=== PATIENT | male | born 1950 | race African-American/Black ===

== ENCOUNTER 2019-01-04 00:56 | Inpatient (IN) | payer MEDICARE ==
[2019-01-04] MEDS ORDERED: IPRATROPIUM/ALBUTEROL 0.5-2.5 MG/3 ML AMPUL NEB ONE (01:08)
[2019-01-04] MEDS ORDERED: ALBUTEROL SULFATE 0.083% NEB 2.5 MG/3 ML AMPUL NEB ONE ×2 (01:08→02:29)
--- NOTE | 2019-01-04 01:11 | ER Document Report ---
ED General - General Stated Complaint: DIFFICULTY BREATHING Time Seen by Provider: 01/04/19 00:59 Cannot obtain history due to: Unstable vital signs Notes: Patient is a 68-year-old male with past medical history of COPD, hypertension, off all medications for at least the last 2 months who presents with 4 to 5 hours of progressively worsening shortness of breath. History is severely limited at the time of patient's presentation due to his respiratory distress. EMS does report that the patient was very labored when they got to his house, saturating 81% on room air. Does not normally use home oxygen. Patient is unable to identify exacerbating or alleviating factors. History is otherwise limited secondary to patient's instability at time of presentation. - Related Data Allergies/Adverse Reactions: No Known Allergies Allergy (Unverified 10/26/13 11:22) Past Medical History - General Information source: Patient - Social History Smoking Status: Former Smoker Frequency of alcohol use: None Drug Abuse: None Lives with: Alone Family History: Reviewed & Not Pertinent - Past Medical History Cardiac Medical History: Reports: Hx Hypertension Pulmonary Medical History: Reports: Hx COPD - Immunizations Hx Diphtheria, Pertussis, Tetanus Vaccination: Yes Hx Pneumococcal Vaccination: 09/11/09 Review of Systems - Review of Systems Notes: Constitutional: Negative for fever. HENT: Negative for sore throat. Eyes: Negative for visual changes. Cardiovascular: Negative for chest pain. Respiratory: Positive shortness of breath and cough Gastrointestinal: Negative for abdominal pain, vomiting or diarrhea. Genitourinary: Negative for dysuria. Musculoskeletal: Negative for back pain. Skin: Negative for rash. Neurological: Negative for headaches, weakness or numbness. 10 point ROS negative except as marked above and in HPI. Physical Exam - Vital signs Vitals: Resp Pulse Ox 17 97 01/04/19 01:32 01/04/19 01:32 Interpretation: Tachycardic, Hypoxic, Tachypneic Notes: PHYSICAL EXAMINATION: GENERAL: In moderate to severe respiratory distress HEAD: Atraumatic, normocephalic. EYES: Pupils equal round and reactive to light, extraocular movements intact, sclera anicteric, conjunctiva are normal. ENT: nares patent, oropharynx clear without exudates. Moderately dry mucous membranes. NECK: Normal range of motion, supple without lymphadenopathy LUNGS: Coarse expiratory wheezing and rhonchi in all lung hernández. Patient is having intercostal retractions, moderate to severe respiratory distress with associated tachypnea and inability to speak in full sentences. HEART: Regular tachycardia without murmurs ABDOMEN: Soft, nontender, normoactive bowel sounds. No guarding, no rebound. No masses appreciated. EXTREMITIES: Normal range of motion, no pitting or edema. No cyanosis. NEUROLOGICAL: No focal neurological deficits. Moves all extremities spontaneously and on command. PSYCH: Somewhat lethargic SKIN: Warm, Dry, normal turgor, no rashes or lesions noted. Course - Re-evaluation Re-evalutation: 01/04/19 01:09 Patient presents in respiratory distress, retracting in the intercostal spaces, breathing roughly 32 times per minute on initial assessment. Patient is not able to speak in full sentences secondary to degree of distress. Has been given continuous albuterol and ipratropium nebulizers in route to the hospital as well as 125 mg of Solu-Medrol. Patient immediately underwent bedside assessment. Coarse rales and wheezing in the expiratory phase noted in all lung hernández. Bedside pleural ultrasound without any significant B-lines. Echocardiogram without evidence of pericardial effusion or regional wall motion abnormality. No pedal edema. Capital chest x-ray to be obtained. 2 g of magnesium will be administered over 20 minutes. Patient will be placed on BiPAP to assist with his work of breathing with in-line albuterol and ipratropium nebulizers. Patient is in guarded condition, will be monitored at regular intervals 01/04/19 02:01 Patient's work of breathing much improved on BiPAP. Continues to have expiratory wheezing and rhonchorous breath sounds throughout although air movement much improved. Chest x-ray without evidence of acute infiltrate. Most labs have been hemolyzed. CBC unremarkable. Will continue to reassess. 01/04/19 02:29 Work of breathing is dramatically improved on BiPAP. No longer in distress. Able to speak in full sentence. Remains with some scattered rhonchi. Additional nebulizers have been ordered. Awaiting labs and then will discuss with the hospitalist for admission. 01/04/19 03:01 Patient continues to be much improved. I have discussed this case with Dr. Francisco Bernal who has accepted the patient for admission. - Vital Signs Vital signs: Temp Pulse Resp BP Pulse Ox 17 97 01/04/19 01:32 01/04/19 01:32 - Laboratory Result Diagrams: 01/04/19 01:05 01/04/19 02:00 Laboratory results interpreted by me: 01/04/19 01/04/19 01:05 02:00 RDW 15.0 H Glucose 153 H Alkaline Phosphatase 149 H - Diagnostic Test Radiology reviewed: Image reviewed, Reports reviewed Radiology results interpreted by me: 01/04/19 02:41 Chest x-ray: Emphysematous changes although no acute infiltrate - EKG Interpretation by Me Additional EKG results interpreted by me: 01/04/19 02:41 Sinus rhythm, rate 90, multiple PACs. No ST elevations or depressions. QTC 480. Critical Care Note - Critical Care Note Total time excluding time spent on procedures (mins): 40 Comments: Critical care time spent obtaining history from patient or surrogate, discussions with consultants, development of treatment plan with patient or surrogate, evaluation of patient's response to treatment, examination of patient, ordering and performing treatments and interventions, ordering and review of laboratory studies, re-evaluation of patient's condition, ordering and review of radiographic studies and review of old charts Discharge - Discharge Clinical Impression: COPD exacerbation, Respiratory distress, Cough, Acute hypoxemic respiratory failure Condition: Fair Disposition: ADMITTED INPATIENT Admitting Provider: Gabe (Hospitalist) Unit Admitted: Telemetry
[2019-01-04] MEDS: MAGNESIUM SULFATE/D5W 1 GM/100 ML RTUPB IV SCH ×2 (01:25→02:01)
[2019-01-04 01:28] LABS: ABSOLUTE BASOPHILS # (AUTO) 0.1 10^3/uL (0.0-0.2); ABSOLUTE EOSINOPHILS # (AUTO) 0.3 10^3/uL (0.0-0.6); ABSOLUTE LYMPHOCYTES (AUTO) 1.7 10^3/uL (0.5-4.7); ABSOLUTE MONOCYTES (AUTO) 0.8 10^3/uL (0.1-1.4); ABSOLUTE NEUT (AUTO) 6.9 10^3/uL (1.7-8.2); BASOPHILS % (AUTO) 0.6 % (0-2); HEMATOCRIT 48.7 % (37.9-51.0); HEMOGLOBIN 16.2 g/dL (13.5-17.0); LYMPHOCYTES % (AUTO) 17.2 % (13-45); MEAN CORPUSCULAR HEMOGLOBIN 30.6 pg (27.0-33.4); MEAN CORPUSCULAR HGB CONC 33.3 g/dL (32.0-36.0); MEAN CORPUSCULAR VOLUME 92 fl (80-97); MONOCYTES % (AUTO) 8.5 % (3-13); PLATELET COUNT 221 10^3/uL (150-450); RED BLOOD COUNT 5.29 10^6/uL (4.35-5.55); SEGMENTED NEUTROPHILS % (AUTO) 70.7 % (42-78); TOTAL CELLS COUNTED % (AUTO) 100 %; WHITE BLOOD COUNT 9.7 10^3/uL (4.0-10.5)
[2019-01-04 01:30] LABS: VENOUS BLOOD BASE EXCESS 1.9 mmol/L; VENOUS BLOOD HCO3 29.8 mmol/L (20-32); VENOUS BLOOD PCO2 59.2 mmHg (35-63); VENOUS BLOOD PH 7.32 (7.30-7.42)
--- NOTE | 2019-01-04 01:36 | RADIOLOGY REPORT (SQ) ---
EXAM DESCRIPTION: XR CHEST 1 VIEW COMPLETED DATE/TME: 01/04/2019 01:07 CLINICAL HISTORY: 68 years, Male, sob COMPARISON: None. NUMBER OF VIEWS: TECHNIQUE: LIMITATIONS: None. FINDINGS: There is possible emphysema. No evidence of pulmonary infiltrate or pleural effusion. The heart is normal in size. There is tortuosity of the thoracic aorta. Pulmonary vascularity appears normal. IMPRESSION: Possible emphysema. copyright 2010 [employer]- All Rights Reserved
[2019-01-04 02:34] LABS: ALANINE AMINOTRANSFERASE 21 U/L (21-72); ALBUMIN 4.1 g/dL (3.5-5.0); ALKALINE PHOSPHATASE 149 U/L (38-126); ANION GAP 12 (5-19); ASPARTATE AMINO TRANSFERASE 22 U/L (17-59); BILIRUBIN,DIRECT 0.3 mg/dL (0.0-0.4); BILIRUBIN,TOTAL 0.7 mg/dL (0.2-1.3); BLOOD UREA NITROGEN 13 mg/dL (7-20); CALCIUM 9.5 mg/dL (8.4-10.2); CARBON DIOXIDE 26 mmol/L (22-30); CHLORIDE 105 mmol/L (98-107); GLUCOSE 153 mg/dL (75-110); POTASSIUM 4.5 mmol/L (3.6-5.0); SODIUM 142.6 mmol/L (137-145); TOTAL PROTEIN 7.9 g/dL (6.3-8.2)
[2019-01-04] MEDS ORDERED: RINGERS SOLUTION,LACTATED 1,000 ML IV ONE (03:00)
[2019-01-04] MEDS ORDERED: IPRATROPIUM/ALBUTEROL 0.5-2.5 MG/3 ML AMPUL NEB PRN (03:57)
[2019-01-04] MEDS: CHLORPHENIRAMINE MALEATE 4 MG TABLET PO SCH ×5 (04:50→23:04)
[2019-01-04] MEDS: PREDNISONE 20 MG TABLET PO SCH ×3 (04:51→18:43)
[2019-01-04] MEDS ORDERED: FUROSEMIDE INJ/PF 40 MG/4 ML SDV IV ONE (06:36)
--- NOTE | 2019-01-04 06:44 | PDOC H&P ---
History of Present Illness Admission Date/PCP: 01/04/19 03:11 Patient complains of: Shortness of breath History of Present Illness: MARIA FERNANDA LY is a 68 year old male with a past medical history of hypertension and COPD who is been without medications for 2 months presents to the emergency room with abrupt onset of shortness of breath with a productive cough of clear sputum, tachypnea with use of accessory muscles and retractions satting only 81% on room air. He received several breathing treatments of albuterol and Atrovent then placed on BiPAP with significant improvement he is denying chest pain palpitations nausea or vomiting. He admits to 2 months of medication noncompliance and tobacco use. He denies drug use Past Medical History Cardiac Medical History: Reports: Hypertension Pulmonary Medical History: Reports: Chronic Obstructive Pulmonary Disease (COPD) Psychiatric Medical History: Reports: Tobacco Dependency Social History Information Source: Patient Lives with: Alone Smoking Status: Current Every Day Smoker Frequency of Alcohol Use: None Drugs: None - Advance Directive Resuscitation Status: Full Code Family History Family History: COPD Parental Family History Reviewed: Yes Children Family History Reviewed: Yes Sibling(s) Family History Reviewed.: Yes Medication/Allergy Home Medications: Azithromycin [Zithromax 250 mg Tablet] 250 mg PO ASDIR PRN #6 tablet 10/26/13 Oxycodone HCl/Acetaminophen [Percocet 5-325 mg Tablet] 1 - 2 tab PO ASDIR PRN #20 tablet 10/26/13 Prednisone 40 mg PO DAILY #10 tablet 10/26/13 Allergies/Adverse Reactions: No Known Allergies Allergy (Unverified 10/26/13 11:22) Review of Systems Constitutional: ABSENT: chills, fever(s), headache(s), weight gain, weight loss Eyes: ABSENT: visual disturbances Ears: ABSENT: hearing changes Cardiovascular: ABSENT: chest pain, dyspnea on exertion, edema, orthropnea, palpitations Respiratory: PRESENT: as per HPI, dyspnea. ABSENT: cough, hemoptysis Gastrointestinal: ABSENT: abdominal pain, constipation, diarrhea, hematemesis, hematochezia, nausea, vomiting Genitourinary: ABSENT: dysuria, hematuria Musculoskeletal: ABSENT: joint swelling Integumentary: ABSENT: rash, wounds Neurological: ABSENT: abnormal gait, abnormal speech, confusion, dizziness, focal weakness, syncope Psychiatric: ABSENT: anxiety, depression, homidical ideation, suicidal ideation Endocrine: ABSENT: cold intolerance, heat intolerance, polydipsia, polyuria Hematologic/Lymphatic: ABSENT: easy bleeding, easy bruising Physical Exam Vital Signs: Temp Pulse Resp BP Pulse Ox 15 160/111 H 97 01/04/19 06:01 01/04/19 06:00 01/04/19 06:01 Intake & Output 01/02/19 01/03/19 01/04/19 11:59 11:59 11:59 Intake Total 1200 Balance 1200 General appearance: PRESENT: cooperative, severe distress, well-developed, well- nourished. ABSENT: disheveled Head exam: PRESENT: atraumatic, normocephalic Eye exam: PRESENT: conjunctiva pink, EOMI, PERRLA. ABSENT: scleral icterus Ear exam: PRESENT: normal external ear exam Mouth exam: PRESENT: moist, tongue midline Neck exam: ABSENT: carotid bruit, JVD, lymphadenopathy, thyromegaly Respiratory exam: PRESENT: accessory muscle use, crackles, decreased breath s ounds, prolonged expiratory phas, retraction, symmetrical, tachypnea. ABSENT: rales, rhonchi, wheezes Cardiovascular exam: PRESENT: gallop, +S1, +S2, tachycardia Pulses: PRESENT: normal dorsalis pedis pul Vascular exam: PRESENT: normal capillary refill GI/Abdominal exam: PRESENT: normal bowel sounds, soft. ABSENT: distended, guarding, mass, organolmegaly, rebound, tenderness Rectal exam: PRESENT: deferred Extremities exam: PRESENT: full ROM. ABSENT: calf tenderness, clubbing, pedal edema Neurological exam: PRESENT: alert, awake, oriented to person, oriented to place, oriented to time, oriented to situation, CN II-XII grossly intact. ABSENT: motor sensory deficit Psychiatric exam: PRESENT: appropriate affect, normal mood. ABSENT: homicidal ideation, suicidal ideation Skin exam: PRESENT: dry, intact, warm. ABSENT: cyanosis, rash Results Laboratory Results: 01/04/19 01:05 01/04/19 02:00 01/04/19 01/04/19 01/04/19 01:05 01:05 01:05 WBC 9.7 RBC 5.29 Hgb 16.2 Hct 48.7 MCV 92 MCH 30.6 MCHC 33.3 RDW 15.0 H Plt Count 221 Seg Neutrophils % 70.7 Lymphocytes % 17.2 Monocytes % 8.5 Eosinophils % 3.0 Basophils % 0.6 Absolute Neutrophils 6.9 Absolute Lymphocytes 1.7 Absolute Monocytes 0.8 Absolute Eosinophils 0.3 Absolute Basophils 0.1 VBG pH VBG pCO2 VBG HCO3 VBG Base Excess Sodium Cancelled Potassium Cancelled Chloride Cancelled Carbon Dioxide Cancelled Anion Gap Cancelled BUN Cancelled Creatinine Cancelled Est GFR ( Amer) Cancelled Est GFR (Non-Af Amer) Cancelled Glucose Cancelled Lactic Acid 1.0 Calcium Cancelled Total Bilirubin Cancelled AST Cancelled ALT Cancelled Alkaline Phosphatase Cancelled Total Protein Cancelled Albumin Cancelled 01/04/19 01/04/19 01:05 02:00 WBC RBC Hgb Hct MCV MCH MCHC RDW Plt Count Seg Neutrophils % Lymphocytes % Monocytes % Eosinophils % Basophils % Absolute Neutrophils Absolute Lymphocytes Absolute Monocytes Absolute Eosinophils Absolute Basophils VBG pH 7.32 VBG pCO2 59.2 VBG HCO3 29.8 VBG Base Excess 1.9 Sodium 142.6 Potassium 4.5 Chloride 105 Carbon Dioxide 26 Anion Gap 12 BUN 13 Creatinine 1.03 Est GFR ( Amer) > 60 Est GFR (Non-Af Amer) > 60 Glucose 153 H Lactic Acid Calcium 9.5 Total Bilirubin 0.7 AST 22 ALT 21 Alkaline Phosphatase 149 H Total Protein 7.9 Albumin 4.1 01/04/19 01/04/19 01:05 02:00 Troponin I Cancelled < 0.012 Impressions: Chest X-Ray 01/04/19 01:07 IMPRESSION: Possible emphysema. copyright 2010 [employer]- All Rights Reserved Assessment and Plan - Diagnosis (1) Acute hypoxemic respiratory failure Is this a current diagnosis for this admission?: Yes Plan: Unclear cause, possible flash pulmonary edema versus COPD exacerbation. Follow- up BNP, continue BiPAP with albuterol and Atrovent. Lasix ordered (2) COPD exacerbation Is this a current diagnosis for this admission?: Yes Plan: Secondary to medication and lifestyle noncompliance. Albuterol and Atrovent ordered, incentive spirometry, flutter valve, BiPAP with supplemental oxygen. (3) Respiratory distress Is this a current diagnosis for this admission?: Yes Plan: Possible cardiac component. Follow-up BNP, empiric Lasix dose ordered. (4) Tobacco abuse Is this a current diagnosis for this admission?: Yes Plan: Tobacco Dependence patient received tobacco cessation counseling and offered nicotine replacement options - Time Time Spent with patient: 35 or more minutes - Inpatient Certification Medical Necessity: Need Close Monitoring Due to Risk of Patient Decompensation
[2019-01-04] MEDS: HYDRALAZINE HCL INJ/PF 20 MG/1 ML SDV IV PRN (06:53)
[2019-01-04] MEDS: HEPARIN SOD (PORCINE) 5,000 UNIT/ML 1 ML SYRINGE SUBCUT SCH ×3 (06:54→21:56)
--- NOTE | 2019-01-04 07:42 | EKG REPORT ---
SEVERITY:- ABNORMAL ECG - SINUS RHYTHM MULTIPLE ATRIAL PREMATURE COMPLEXES PROBABLE LEFT ATRIAL ABNORMALITY BORDERLINE INFERIOR Q WAVES NONSPECIFIC T ABNORMALITIES, ANT-LAT LEADS BORDERLINE PROLONGED QT INTERVAL : Confirmed by: Oswaldo Rosas MD 04-Jan-2019 07:42:27
[2019-01-04 08:38] LABS: CREATINE KINASE MB 1.63 ng/mL (<4.55)
[2019-01-04 08:43] LABS: TROPONIN I < 0.012 ng/mL
[2019-01-04] MEDS: IPRATROPIUM/ALBUTEROL 0.5-2.5 MG/3 ML AMPUL NEB SCH ×3 (09:04→20:38)
[2019-01-04] MEDS: FLUTICASONE NASAL SPRAY 50 MCG/SPRY 120 SPRAY/16 GM NASL SCH ×2 (10:02→18:44)
[2019-01-04 10:53] LABS: URINE AMPHETAMINES SCREEN NEGATIVE; URINE BARBITURATES SCREEN NEGATIVE; URINE BENZODIAZEPINES SCREEN NEGATIVE; URINE COCAINE SCREEN NEGATIVE; URINE MARIJUANA (THC) SCREEN UNCONFIRMED POSITIVE; URINE METHADONE SCREEN NEGATIVE; URINE PHENCYCLIDINE SCREEN NEGATIVE
[2019-01-04 14:35] LABS: CREATINE KINASE MB 1.46 ng/mL (<4.55)
[2019-01-04 14:41] LABS: TROPONIN I < 0.012 ng/mL
[2019-01-04] MEDS: ACETAMINOPHEN 325 MG TABLET PO PRN (15:49)
[2019-01-04 20:18] LABS: CREATINE KINASE MB 1.38 ng/mL (<4.55)
[2019-01-04 20:21] LABS: TROPONIN I < 0.012 ng/mL
[2019-01-05] MEDS: IPRATROPIUM/ALBUTEROL 0.5-2.5 MG/3 ML AMPUL NEB SCH ×4 (02:13→20:57)
[2019-01-05] MEDS: HEPARIN SOD (PORCINE) 5,000 UNIT/ML 1 ML SYRINGE SUBCUT SCH ×3 (05:40→22:12)
[2019-01-05] MEDS: GUAIFENESIN SYRP 200 MG/10 ML UDC PO PRN ×4 (05:40→18:10)
[2019-01-05] MEDS: FLUTICASONE NASAL SPRAY 50 MCG/SPRY 120 SPRAY/16 GM NASL SCH ×2 (05:40→17:19)
[2019-01-05 05:57] LABS: ABSOLUTE LYMPHOCYTES (AUTO) 0.7 10^3/uL (0.5-4.7); ABSOLUTE MONOCYTES (AUTO) 0.7 10^3/uL (0.1-1.4); ABSOLUTE NEUT (AUTO) 9.8 10^3/uL (1.7-8.2); BASOPHILS % (AUTO) 0.1 % (0-2); HEMATOCRIT 44.9 % (37.9-51.0); HEMOGLOBIN 14.9 g/dL (13.5-17.0); MEAN CORPUSCULAR HEMOGLOBIN 30.5 pg (27.0-33.4); MEAN CORPUSCULAR HGB CONC 33.3 g/dL (32.0-36.0); MEAN CORPUSCULAR VOLUME 92 fl (80-97); MONOCYTES % (AUTO) 6.6 % (3-13); PLATELET COUNT 197 10^3/uL (150-450); RED CELL DISTRIBUTION WIDTH 14.5 % (11.5-14.0); SEGMENTED NEUTROPHILS % (AUTO) 87.3 % (42-78); TOTAL CELLS COUNTED % (AUTO) 100 %; WHITE BLOOD COUNT 11.2 10^3/uL (4.0-10.5)
[2019-01-05 06:24] LABS: ANION GAP 12 (5-19); BLOOD UREA NITROGEN 28 mg/dL (7-20); CALCIUM 9.8 mg/dL (8.4-10.2); CARBON DIOXIDE 24 mmol/L (22-30); CHLORIDE 104 mmol/L (98-107); GLUCOSE 133 mg/dL (75-110); POTASSIUM 4.6 mmol/L (3.6-5.0); SODIUM 139.6 mmol/L (137-145)
[2019-01-05] MEDS: ACETAMINOPHEN 325 MG TABLET PO PRN (08:51)
[2019-01-05] MEDS: PREDNISONE 20 MG TABLET PO SCH (09:52)
[2019-01-05] MEDS: AZITHROMYCIN 500 MG in DEXTROSE 5%-WATER 250 ML IV SCH (09:52)
[2019-01-05] MEDS: METHYLPREDNISOLONE INJ 40 MG/1 ML SDV IV SCH ×2 (14:02→22:12)
--- NOTE | 2019-01-05 15:40 | PDOC PROGRESS REPORT ---
Subjective Progress Note for:: 01/05/19 Subjective:: This is a 68 year old male with a past medical history of hypertension and COPD who presented with increasing shortness of breath with a productive cough of clear sputum, tachypnea with use of accessory muscles and retractions satting only 81% on room air. He as admitted for COPD exacerbation. No acute event overnight. Currently on prednisone. He says he is still short of breath but this has improved from yesterday. Denies chest pain. Reason For Visit: COPD EXACERBATION, BRONCHITIS HTN Physical Exam Vital Signs: Temp Pulse Resp BP Pulse Ox 98.4 F 89 16 153/96 H 97 01/05/19 12:58 01/05/19 14:45 01/05/19 14:45 01/05/19 12:58 01/05/19 14:45 Intake & Output 01/04/19 01/05/19 01/06/19 06:59 06:59 06:59 Intake Total 1200 1065 250 Output Total 200 Balance 1200 865 250 Weight 175 lb 14.862 oz General appearance: PRESENT: no acute distress, well-developed, well-nourished Head exam: PRESENT: atraumatic, normocephalic Eye exam: PRESENT: conjunctiva pink, EOMI, PERRLA. ABSENT: scleral icterus Ear exam: PRESENT: normal external ear exam Mouth exam: PRESENT: moist, tongue midline Neck exam: ABSENT: carotid bruit, JVD, lymphadenopathy, thyromegaly Respiratory exam: PRESENT: rhonchi, wheezes. ABSENT: rales Cardiovascular exam: PRESENT: RRR. ABSENT: diastolic murmur, rubs, systolic murmur Pulses: PRESENT: normal dorsalis pedis pul GI/Abdominal exam: PRESENT: normal bowel sounds, soft. ABSENT: distended, guarding, mass, organolmegaly, rebound, tenderness Rectal exam: PRESENT: deferred Neurological exam: PRESENT: alert, awake, oriented to person, oriented to place, oriented to time, oriented to situation, CN II-XII grossly intact. ABSENT: motor sensory deficit Results Laboratory Results: 01/05/19 05:19 01/05/19 05:19 01/05/19 01/05/19 05:19 05:19 WBC 11.2 H RBC 4.90 Hgb 14.9 Hct 44.9 MCV 92 MCH 30.5 MCHC 33.3 RDW 14.5 H Plt Count 197 Seg Neutrophils % 87.3 H Lymphocytes % 6.0 L Monocytes % 6.6 Eosinophils % 0.0 Basophils % 0.1 Absolute Neutrophils 9.8 H Absolute Lymphocytes 0.7 Absolute Monocytes 0.7 Absolute Eosinophils 0.0 Absolute Basophils 0.0 Sodium 139.6 Potassium 4.6 Chloride 104 Carbon Dioxide 24 Anion Gap 12 BUN 28 H Creatinine 1.35 H Est GFR ( Amer) > 60 Est GFR (Non-Af Amer) 53 L Glucose 133 H Calcium 9.8 01/04/19 01/04/19 01/04/19 01:05 02:00 07:52 Creatine Kinase CK-MB (CK-2) Troponin I Cancelled < 0.012 NT-Pro-B Natriuret Pep 103 01/04/19 01/04/19 01/04/19 07:52 07:52 13:42 Creatine Kinase 119 142 CK-MB (CK-2) 1.63 Troponin I < 0.012 NT-Pro-B Natriuret Pep 01/04/19 01/04/19 01/04/19 13:42 19:12 19:12 Creatine Kinase 188 H CK-MB (CK-2) 1.46 1.38 Troponin I < 0.012 < 0.012 NT-Pro-B Natriuret Pep Impressions: Chest X-Ray 01/04/19 01:07 IMPRESSION: Possible emphysema. copyright 2011 [employer]- All Rights Reserved Assessment and Plan - Diagnosis (1) Acute hypoxemic respiratory failure Is this a current diagnosis for this admission?: Yes Plan: Secondary to COPD exacerbation. Currently saturating well on 2 lpm via [place] which is his home O2 requirement. (2) COPD exacerbation Is this a current diagnosis for this admission?: Yes Plan: Switch prednisone to solumedrol. Continue breathing treatments and azithromycin. (3) Chronic respiratory failure Is this a current diagnosis for this admission?: Yes - Time Time Spent with patient: 15-24 minutes
[2019-01-06] MEDS: IPRATROPIUM/ALBUTEROL 0.5-2.5 MG/3 ML AMPUL NEB SCH ×5 (03:05→22:28)
[2019-01-06 06:08] LABS: ANION GAP 8 (5-19); BLOOD UREA NITROGEN 25 mg/dL (7-20); CALCIUM 9.4 mg/dL (8.4-10.2); CARBON DIOXIDE 27 mmol/L (22-30); CHLORIDE 104 mmol/L (98-107); GLUCOSE 111 mg/dL (75-110); POTASSIUM 5.1 mmol/L (3.6-5.0); SODIUM 138.7 mmol/L (137-145)
[2019-01-06] MEDS: METHYLPREDNISOLONE INJ 40 MG/1 ML SDV IV SCH ×4 (06:10→23:30)
[2019-01-06] MEDS: HEPARIN SOD (PORCINE) 5,000 UNIT/ML 1 ML SYRINGE SUBCUT SCH ×3 (06:10→22:24)
[2019-01-06] MEDS: FLUTICASONE NASAL SPRAY 50 MCG/SPRY 120 SPRAY/16 GM NASL SCH ×2 (06:10→17:10)
[2019-01-06] MEDS: GUAIFENESIN SYRP 200 MG/10 ML UDC PO PRN ×2 (07:49→18:21)
[2019-01-06] MEDS: ACETAMINOPHEN 325 MG TABLET PO PRN ×2 (10:27→20:09)
[2019-01-06] MEDS: AZITHROMYCIN 500 MG in DEXTROSE 5%-WATER 250 ML IV SCH (10:27)
--- NOTE | 2019-01-06 10:29 | PDOC PROGRESS REPORT ---
Subjective Progress Note for:: 01/06/19 Subjective:: This is a 68 year old male with a past medical history of hypertension and COPD who presented with increasing shortness of breath with a productive cough of clear sputum, tachypnea with use of accessory muscles and retractions satting only 81% on room air. He as admitted for COPD exacerbation. 01/05: Currently on prednisone. He says he is still short of breath but this has improved from yesterday. Denies chest pain. 01/06: No acute event overnight. He says his SOB is about the same from yesterday. He has more wheezing this morning. Reason For Visit: COPD EXACERBATION, BRONCHITIS HTN Physical Exam Vital Signs: Temp Pulse Resp BP Pulse Ox 97.7 F 78 18 147/96 H 97 01/06/19 08:00 01/06/19 08:38 01/06/19 08:38 01/06/19 08:00 01/06/19 08:38 Intake & Output 01/05/19 01/06/19 01/07/19 06:59 06:59 06:59 Intake Total 1065 2561 Output Total 200 Balance 865 2561 Weight 175 lb 14.862 oz 176 lb 9.444 oz General appearance: PRESENT: no acute distress, well-developed, well-nourished Head exam: PRESENT: atraumatic, normocephalic Eye exam: PRESENT: conjunctiva pink, EOMI, PERRLA. ABSENT: scleral icterus Ear exam: PRESENT: normal external ear exam Mouth exam: PRESENT: moist, tongue midline Neck exam: ABSENT: carotid bruit, JVD, lymphadenopathy, thyromegaly Respiratory exam: PRESENT: rhonchi, wheezes. ABSENT: rales Cardiovascular exam: PRESENT: RRR. ABSENT: diastolic murmur, rubs, systolic murmur Pulses: PRESENT: normal dorsalis pedis pul GI/Abdominal exam: PRESENT: normal bowel sounds, soft. ABSENT: distended, guarding, mass, organolmegaly, rebound, tenderness Rectal exam: PRESENT: deferred Neurological exam: PRESENT: alert, awake, oriented to person, oriented to place, oriented to time, oriented to situation, CN II-XII grossly intact. ABSENT: motor sensory deficit Results Laboratory Results: 01/05/19 05:19 01/06/19 04:04 01/06/19 04:04 Sodium 138.7 Potassium 5.1 H Chloride 104 Carbon Dioxide 27 Anion Gap 8 BUN 25 H Creatinine 1.05 Est GFR ( Amer) > 60 Est GFR (Non-Af Amer) > 60 Glucose 111 H Calcium 9.4 01/04/19 01/04/19 01/04/19 01:05 02:00 07:52 Creatine Kinase CK-MB (CK-2) Troponin I Cancelled < 0.012 NT-Pro-B Natriuret Pep 103 01/04/19 01/04/19 01/04/19 07:52 07:52 13:42 Creatine Kinase 119 142 CK-MB (CK-2) 1.63 Troponin I < 0.012 NT-Pro-B Natriuret Pep 01/04/19 01/04/19 01/04/19 13:42 19:12 19:12 Creatine Kinase 188 H CK-MB (CK-2) 1.46 1.38 Troponin I < 0.012 < 0.012 NT-Pro-B Natriuret Pep Impressions: Chest X-Ray 01/04/19 01:07 IMPRESSION: Possible emphysema. copyright 2011 [employer]- All Rights Reserved Assessment and Plan - Diagnosis (1) Acute hypoxemic respiratory failure Is this a current diagnosis for this admission?: Yes Plan: Secondary to COPD exacerbation. Currently saturating well on 2 lpm via [place] which is his home O2 requirement. (2) COPD exacerbation Is this a current diagnosis for this admission?: Yes Plan: Switch prednisone to solumedrol. Continue breathing treatments and azithromycin. 01/06: Increase solumedrol to 40 mg q6h from q12. Increase duoneb to q4 scheduled. (3) Chronic respiratory failure Is this a current diagnosis for this admission?: Yes Plan: As per num 1. - Time Time Spent with patient: 15-24 minutes
--- NOTE | 2019-01-06 12:41 | RADIOLOGY REPORT (SQ) ---
EXAM DESCRIPTION: CHEST SINGLE VIEW COMPLETED DATE/TIME: 01/06/2019 12:18 pm REASON FOR STUDY: wheezing COMPARISON: 01/04/2019. EXAM PARAMETERS: NUMBER OF VIEWS: One view. TECHNIQUE: Single frontal radiographic view of the chest acquired. RADIATION DOSE: NA LIMITATIONS: None. FINDINGS: LUNGS AND PLEURA: No opacities, masses or pneumothorax. No pleural effusion. MEDIASTINUM AND HILAR STRUCTURES: No masses. Contour normal. HEART AND VASCULAR STRUCTURES: Heart normal in size. Normal vasculature. BONES: No acute findings. HARDWARE: None in the chest. OTHER: No other significant finding. IMPRESSION: NO ACUTE RADIOGRAPHIC FINDING IN THE CHEST. TECHNICAL DOCUMENTATION: JOB ID: [id number] [employer]- All Rights Reserved Reading location - IP/workstation name: [email or web address]
[2019-01-06] MEDS: HYDRALAZINE HCL INJ/PF 20 MG/1 ML SDV IV PRN (23:30)
[2019-01-07] MEDS: IPRATROPIUM/ALBUTEROL 0.5-2.5 MG/3 ML AMPUL NEB SCH ×7 (00:20→23:53)
[2019-01-07] MEDS: HEPARIN SOD (PORCINE) 5,000 UNIT/ML 1 ML SYRINGE SUBCUT SCH ×3 (06:06→22:06)
[2019-01-07] MEDS: FLUTICASONE NASAL SPRAY 50 MCG/SPRY 120 SPRAY/16 GM NASL SCH ×2 (06:06→17:16)
[2019-01-07] MEDS: METHYLPREDNISOLONE INJ 40 MG/1 ML SDV IV SCH ×4 (06:06→23:37)
[2019-01-07] MEDS: GUAIFENESIN SYRP 200 MG/10 ML UDC PO PRN ×3 (09:01→22:12)
[2019-01-07] MEDS: AZITHROMYCIN 500 MG in DEXTROSE 5%-WATER 250 ML IV SCH (09:01)
--- NOTE | 2019-01-07 14:46 | PDOC PROGRESS REPORT ---
Subjective Progress Note for:: 01/07/19 Subjective:: This is a 68 year old male with a past medical history of hypertension and COPD who presented with increasing shortness of breath with a productive cough of clear sputum, tachypnea with use of accessory muscles and retractions satting only 81% on room air. He as admitted for COPD exacerbation. 01/05: Currently on prednisone. He says he is still short of breath but this has improved from yesterday. Denies chest pain. 01/06: He says his SOB is about the same from yesterday. He has more wheezing this morning. 01/07: No acute event overnight. IV steroids were increased yesterday. He says there is slight improvement of his SOB today but he still has very significant bilateral wheezes and rhonchi only slightly improved from yesterday. Reason For Visit: COPD EXACERBATION, BRONCHITIS HTN Physical Exam Vital Signs: Temp Pulse Resp BP Pulse Ox 97.7 F 78 18 153/95 H 94 01/07/19 10:00 01/07/19 12:02 01/07/19 12:02 01/07/19 10:00 01/07/19 12:02 Intake & Output 01/06/19 01/07/19 01/08/19 06:59 06:59 06:59 Intake Total 2561 1590 487 Balance 2561 1590 487 Weight 176 lb 9.444 oz 173 lb 15.115 oz General appearance: PRESENT: no acute distress, well-developed, well-nourished Head exam: PRESENT: atraumatic, normocephalic Eye exam: PRESENT: conjunctiva pink, EOMI, PERRLA. ABSENT: scleral icterus Ear exam: PRESENT: normal external ear exam Mouth exam: PRESENT: moist, tongue midline Neck exam: ABSENT: carotid bruit, JVD, lymphadenopathy, thyromegaly Respiratory exam: PRESENT: rhonchi, wheezes. ABSENT: rales Cardiovascular exam: PRESENT: RRR. ABSENT: diastolic murmur, rubs, systolic murmur Pulses: PRESENT: normal dorsalis pedis pul GI/Abdominal exam: PRESENT: normal bowel sounds, soft. ABSENT: distended, guarding, mass, organolmegaly, rebound, tenderness Rectal exam: PRESENT: deferred Neurological exam: PRESENT: alert, awake, oriented to person, oriented to place, oriented to time, oriented to situation, CN II-XII grossly intact. ABSENT: motor sensory deficit Results Laboratory Results: 01/05/19 05:19 01/06/19 04:04 01/04/19 01/04/19 01/04/19 01:05 02:00 07:52 Creatine Kinase CK-MB (CK-2) Troponin I Cancelled < 0.012 NT-Pro-B Natriuret Pep 103 01/04/19 01/04/19 01/04/19 07:52 07:52 13:42 Creatine Kinase 119 142 CK-MB (CK-2) 1.63 Troponin I < 0.012 NT-Pro-B Natriuret Pep 01/04/19 01/04/19 01/04/19 13:42 19:12 19:12 Creatine Kinase 188 H CK-MB (CK-2) 1.46 1.38 Troponin I < 0.012 < 0.012 NT-Pro-B Natriuret Pep Impressions: Chest X-Ray 01/06/19 00:00 IMPRESSION: NO ACUTE RADIOGRAPHIC FINDING IN THE CHEST. Assessment and Plan - Diagnosis (1) Acute hypoxemic respiratory failure Is this a current diagnosis for this admission?: Yes Plan: Secondary to COPD exacerbation. Currently saturating well on 2 lpm via [place] which is his home O2 requirement. (2) COPD exacerbation Is this a current diagnosis for this admission?: Yes Plan: Switch prednisone to solumedrol. Continue breathing treatments and azithromycin. 01/06: Increase solumedrol to 40 mg q6h from q12. Increase duoneb to q4 scheduled. 01/07: Only a slight improvement from yesterday. Continue solumedrol 40 mg q6h and breathing treatments. Will add pulmicort. (3) Chronic respiratory failure Is this a current diagnosis for this admission?: Yes Plan: As per num 1. - Time Time Spent with patient: 25-34 minutes
--- NOTE | 2019-01-07 16:16 | RADIOLOGY REPORT (SQ) ---
EXAM DESCRIPTION: NM LUNG VENT/PERF SCAN COMPLETED DATE/TIME: 01/07/2019 4:05 pm REASON FOR STUDY: hypoxia COMPARISON: None. RADIONUCLIDE AND DOSE: 5 millicuries TC-99m MAA Intravenous 30 millicuries TC-99m DTPA Inhaled aerosol TECHNIQUE: Eight views of the lungs acquired post ventilation of DTPA aerosol. Eight matching views of the lungs acquired following injection of MAA. LIMITATIONS: None. FINDINGS: VENTILATION: Somewhat heterogeneous. There is clumping DTPA in the airways. PERFUSION: Perfusion images with normal homogenous activity and no wedge-shaped or segmental defects. No ventilation-perfusion mismatches. OTHER: No other significant finding. IMPRESSION: Low probability of pulmonary embolus. TECHNICAL DOCUMENTATION: JOB ID: [id number] [employer]- All Rights Reserved Reading location - IP/workstation name: [email or web address]
[2019-01-07] MEDS: BUDESONIDE NEB 0.5 MG/2 ML AMPUL NEB SCH (20:29)
[2019-01-07] MEDS: HYDRALAZINE HCL INJ/PF 20 MG/1 ML SDV IV PRN (22:11)
[2019-01-08] MEDS: IPRATROPIUM/ALBUTEROL 0.5-2.5 MG/3 ML AMPUL NEB SCH ×6 (03:53→23:27)
[2019-01-08] MEDS: METHYLPREDNISOLONE INJ 40 MG/1 ML SDV IV SCH ×3 (06:04→17:30)
[2019-01-08] MEDS: HEPARIN SOD (PORCINE) 5,000 UNIT/ML 1 ML SYRINGE SUBCUT SCH ×2 (06:05→13:49)
[2019-01-08] MEDS: FLUTICASONE NASAL SPRAY 50 MCG/SPRY 120 SPRAY/16 GM NASL SCH ×2 (06:05→17:30)
[2019-01-08 06:19] LABS: ANION GAP 11 (5-19); BLOOD UREA NITROGEN 31 mg/dL (7-20); CALCIUM 9.3 mg/dL (8.4-10.2); CARBON DIOXIDE 26 mmol/L (22-30); CHLORIDE 105 mmol/L (98-107); GLUCOSE 123 mg/dL (75-110); POTASSIUM 4.7 mmol/L (3.6-5.0)
[2019-01-08] MEDS: BUDESONIDE NEB 0.5 MG/2 ML AMPUL NEB SCH ×2 (07:51→20:19)
[2019-01-08] MEDS: AZITHROMYCIN 500 MG in DEXTROSE 5%-WATER 250 ML IV SCH (09:35)
[2019-01-08] MEDS: GUAIFENESIN SYRP 200 MG/10 ML UDC PO PRN ×2 (09:36→13:40)
[2019-01-08] MEDS: ACETAMINOPHEN 325 MG TABLET PO PRN ×2 (09:36→13:40)
[2019-01-08] MEDS ORDERED: CEFTRIAXONE 1 GM/D5W RTU 1 GM/50 ML RTUPB IV SCH (11:30)
--- NOTE | 2019-01-08 13:18 | RADIOLOGY REPORT (SQ) ---
EXAM DESCRIPTION: CT CHEST WITH COMPLETED DATE/TIME: 01/08/2019 12:57 pm REASON FOR STUDY: Worsening dyspnea,Recent weight loss. COMPARISON: AP chest 01/06/2019, 01/04/2019, 10/26/2013 TECHNIQUE: CT scan of the chest performed using helical scanning technique with dynamic intravenous contrast injection. Images reviewed with lung, soft tissue and bone windows. Reconstructed coronal and sagittal MPR and MIP images reviewed. All images stored on PACS. All CT scanners at this facility use dose modulation, iterative reconstruction, and/or weight based d osing when appropriate to reduce radiation dose to as low as reasonably achievable (ALARA). [facility]: Dose Right [facility]: CareDose [facility]: Dose Right [facility]: Teradose 4D [facility]: [employer] CONTRAST TYPE AND DOSE: contrast/concentration: Isovue 350.00 mg/ml; Total Contrast Delivered: 80.0 ml; Total Saline Delivered: 55.0 ml RENAL FUNCTION: Creatinine 0.98 RADIATION DOSE: CT Rad equipment meets quality standard of care and radiation dose reduction techniq ues were employed. CTDIvol: 5.1 mGy. DLP: 204 mGy-cm. . LIMITATIONS: None. FINDINGS: LUNGS AND PLEURA: There is debris in the bilateral lower lobe airways, and patchy bibasila r airspace disease atelectasis versus pneumonia. Remainder of the lungs are well inflated and clear. Mild changes of obstructive disease at the apice s. No pleural effusion. No pneumothorax. HILAR AND MEDIASTINAL STRUCTURES: No identified masses or abnormal nodes. HEART AND VASCULAR STRUCTURES: No aneurysm or dissection. No central pulmonary emboli. No pericardi al effusion. Heavily calcified LAD on axial image 35 through 40 HARDWARE: None in the chest. UPPER ABDOMEN: 2 mm left upper pole intrarenal nonobstructive calculus. THYROID AND OTHER SOFT TISSUES: No masses. No adenopathy. BONES: No significant finding. OTHER: No other significant finding. IMPRESSION: Debris in the bilateral lower lobe airways with patchy bibasilar air space disease atele ctasis versus pneumonia. Recommend speech pathology evaluation for aspiration Heavily calcified LAD on images 35-40. Biapical obstructive lung disease. TECHNICAL DOCUMENTATION: JOB ID: [id number] Quality ID # [id number]: Final reports with documentation of one or more dose reduction techniques (e.g., Au tomated exposure control, adjustment of the mA and/or kV according to patient size, use of iterative reconstruction technique) 2010 [employer]- All Rights Reserved Reading location - IP/workstation name: [email or web address]
[2019-01-08] MEDS: CEFTRIAXONE SODIUM 1,000 MG in DEXTROSE 5%-WATER 50 ML IV SCH (13:42)
[2019-01-09] MEDS: HEPARIN SOD (PORCINE) 5,000 UNIT/ML 1 ML SYRINGE SUBCUT SCH ×4 (00:05→21:24)
[2019-01-09] MEDS: METHYLPREDNISOLONE INJ 40 MG/1 ML SDV IV SCH ×4 (00:10→17:41)
[2019-01-09] MEDS: MONTELUKAST SODIUM 10 MG TABLET PO SCH ×2 (00:10→21:27)
[2019-01-09] MEDS: GUAIFENESIN SYRP 200 MG/10 ML UDC PO PRN ×2 (00:10→10:14)
[2019-01-09] MEDS: HYDRALAZINE HCL INJ/PF 20 MG/1 ML SDV IV PRN (00:11)
[2019-01-09] MEDS: IPRATROPIUM/ALBUTEROL 0.5-2.5 MG/3 ML AMPUL NEB SCH ×5 (03:17→21:54)
[2019-01-09] MEDS: FLUTICASONE NASAL SPRAY 50 MCG/SPRY 120 SPRAY/16 GM NASL SCH ×2 (06:27→17:42)
[2019-01-09 07:48] LABS: ABSOLUTE LYMPHOCYTES (AUTO) 0.7 10^3/uL (0.5-4.7); ABSOLUTE MONOCYTES (AUTO) 0.8 10^3/uL (0.1-1.4); ABSOLUTE NEUT (AUTO) 10.7 10^3/uL (1.7-8.2); ANION GAP 12 (5-19); BASOPHILS % (AUTO) 0.1 % (0-2); BLOOD UREA NITROGEN 38 mg/dL (7-20); CALCIUM 9.2 mg/dL (8.4-10.2); CARBON DIOXIDE 25 mmol/L (22-30); CHLORIDE 104 mmol/L (98-107); GLUCOSE 122 mg/dL (75-110); HEMATOCRIT 41.1 % (37.9-51.0); HEMOGLOBIN 13.8 g/dL (13.5-17.0); LYMPHOCYTES % (AUTO) 5.8 % (13-45); MEAN CORPUSCULAR HEMOGLOBIN 30.7 pg (27.0-33.4); MEAN CORPUSCULAR HGB CONC 33.5 g/dL (32.0-36.0); MEAN CORPUSCULAR VOLUME 92 fl (80-97); MONOCYTES % (AUTO) 6.7 % (3-13); PLATELET COUNT 217 10^3/uL (150-450); POTASSIUM 4.4 mmol/L (3.6-5.0); RED BLOOD COUNT 4.49 10^6/uL (4.35-5.55); RED CELL DISTRIBUTION WIDTH 14.5 % (11.5-14.0); SEGMENTED NEUTROPHILS % (AUTO) 87.4 % (42-78); SODIUM 140.6 mmol/L (137-145); TOTAL CELLS COUNTED % (AUTO) 100 %; WHITE BLOOD COUNT 12.2 10^3/uL (4.0-10.5)
[2019-01-09] MEDS: BUDESONIDE NEB 0.5 MG/2 ML AMPUL NEB SCH ×2 (08:29→21:53)
[2019-01-09] MEDS: AZITHROMYCIN 500 MG in DEXTROSE 5%-WATER 250 ML IV SCH (09:21)
[2019-01-09] MEDS: CEFTRIAXONE SODIUM 1,000 MG in DEXTROSE 5%-WATER 50 ML IV SCH (11:50)
[2019-01-09] MEDS: ACETAMINOPHEN 325 MG TABLET PO PRN (21:27)
[2019-01-10] MEDS: IPRATROPIUM/ALBUTEROL 0.5-2.5 MG/3 ML AMPUL NEB SCH ×6 (00:56→20:28)
[2019-01-10] MEDS: METHYLPREDNISOLONE INJ 40 MG/1 ML SDV IV SCH ×5 (04:29→23:36)
[2019-01-10] MEDS: FLUTICASONE NASAL SPRAY 50 MCG/SPRY 120 SPRAY/16 GM NASL SCH ×2 (06:01→17:45)
[2019-01-10] MEDS: HEPARIN SOD (PORCINE) 5,000 UNIT/ML 1 ML SYRINGE SUBCUT SCH ×3 (06:01→23:09)
[2019-01-10] MEDS: BUDESONIDE NEB 0.5 MG/2 ML AMPUL NEB SCH ×2 (08:05→20:27)
[2019-01-10] MEDS: CEFTRIAXONE SODIUM 1,000 MG in DEXTROSE 5%-WATER 50 ML IV SCH (10:03)
[2019-01-10] MEDS: ACETAMINOPHEN 325 MG TABLET PO PRN (10:08)
[2019-01-10] MEDS ORDERED: FAMOTIDINE 20 MG TABLET PO ONE (11:05)
[2019-01-10] MEDS ORDERED: MAG HYDROX/AL HYDROX/SIMETH SUSP 30 ML UDCUP PO PRN (11:06)
[2019-01-10] MEDS: AZITHROMYCIN 500 MG in DEXTROSE 5%-WATER 250 ML IV SCH (11:12)
[2019-01-10] MEDS: HYDRALAZINE HCL INJ/PF 20 MG/1 ML SDV IV PRN (14:07)
[2019-01-10] MEDS: MONTELUKAST SODIUM 10 MG TABLET PO SCH (23:36)
[2019-01-10] MEDS: FAMOTIDINE 20 MG TABLET PO SCH (23:37)
[2019-01-11] MEDS: IPRATROPIUM/ALBUTEROL 0.5-2.5 MG/3 ML AMPUL NEB SCH ×6 (00:36→20:11)
[2019-01-11] MEDS: HEPARIN SOD (PORCINE) 5,000 UNIT/ML 1 ML SYRINGE SUBCUT SCH ×3 (06:14→21:36)
[2019-01-11] MEDS: METHYLPREDNISOLONE INJ 40 MG/1 ML SDV IV SCH ×4 (06:18→21:35)
[2019-01-11] MEDS: FLUTICASONE NASAL SPRAY 50 MCG/SPRY 120 SPRAY/16 GM NASL SCH ×2 (06:18→17:24)
[2019-01-11] MEDS: BUDESONIDE NEB 0.5 MG/2 ML AMPUL NEB SCH ×2 (08:21→20:11)
[2019-01-11] MEDS: FAMOTIDINE 20 MG TABLET PO SCH (09:28)
[2019-01-11] MEDS: CEFTRIAXONE SODIUM 1,000 MG in DEXTROSE 5%-WATER 50 ML IV SCH (09:33)
[2019-01-11] MEDS: AZITHROMYCIN 500 MG in DEXTROSE 5%-WATER 250 ML IV SCH (11:25)
[2019-01-11] MEDS ORDERED: ALPRAZOLAM 0.25 MG TABLET PO PRN (13:43)
[2019-01-11 14:27] LABS: ANION GAP 11 (5-19); BLOOD UREA NITROGEN 35 mg/dL (7-20); CARBON DIOXIDE 23 mmol/L (22-30); CHLORIDE 106 mmol/L (98-107); GLUCOSE 160 mg/dL (75-110); POTASSIUM 4.7 mmol/L (3.6-5.0); SODIUM 140.3 mmol/L (137-145)
--- NOTE | 2019-01-11 18:35 | PDOC PROGRESS REPORT ---
Subjective Progress Note for:: 01/08/19 Subjective:: Still feeling quite short of breath Reason For Visit: COPD EXACERBATION, BRONCHITIS HTN Physical Exam Vital Signs: Temp Pulse Resp BP Pulse Ox 98.3 F 76 18 157/69 H 96 01/08/19 04:00 01/08/19 11:17 01/08/19 11:17 01/08/19 04:00 01/08/19 11:17 Intake & Output 01/07/19 01/08/19 01/09/19 06:59 06:59 06:59 Intake Total 1590 987 Balance 1590 987 Weight 78.9 kg 80.3 kg General appearance: PRESENT: mild distress Respiratory exam: PRESENT: symmetrical, tachypnea, wheezes. ABSENT: rales, rhonchi, unlabored Cardiovascular exam: PRESENT: RRR, +S1, +S2 GI/Abdominal exam: PRESENT: normal bowel sounds, soft. ABSENT: distended, tenderness Neurological exam: PRESENT: alert, awake, oriented to person, oriented to place, oriented to time, oriented to situation, CN II-XII grossly intact. ABSENT: motor sensory deficit Psychiatric exam: PRESENT: anxious, flat affect. ABSENT: agitated Results Laboratory Results: 01/05/19 05:19 01/08/19 05:32 01/08/19 05:32 Sodium 142.0 Potassium 4.7 Chloride 105 Carbon Dioxide 26 Anion Gap 11 BUN 31 H Creatinine 0.98 Est GFR ( Amer) > 60 Est GFR (Non-Af Amer) > 60 Glucose 123 H Calcium 9.3 01/04/19 01/04/19 01/04/19 01:05 02:00 07:52 Creatine Kinase CK-MB (CK-2) Troponin I Cancelled < 0.012 NT-Pro-B Natriuret Pep 103 01/04/19 01/04/19 01/04/19 07:52 07:52 13:42 Creatine Kinase 119 142 CK-MB (CK-2) 1.63 Troponin I < 0.012 NT-Pro-B Natriuret Pep 01/04/19 01/04/19 01/04/19 13:42 19:12 19:12 Creatine Kinase 188 H CK-MB (CK-2) 1.46 1.38 Troponin I < 0.012 < 0.012 NT-Pro-B Natriuret Pep Impressions: Chest X-Ray 01/06/19 00:00 IMPRESSION: NO ACUTE RADIOGRAPHIC FINDING IN THE CHEST. Lung Scan-VQ NM 01/07/19 14:43 IMPRESSION: Low probability of pulmonary embolus. Assessment and Plan - Diagnosis (1) Acute hypoxemic respiratory failure Is this a current diagnosis for this admission?: Yes Plan: Still on oxygen therapy. We will continue to wean in light of nebulizer belle tments and steroids (2) COPD exacerbation Is this a current diagnosis for this admission?: Yes Plan: Continue nebulizers and steroids. On antibiotics for possible bronchitis versus pneumonia. (3) Tobacco abuse Is this a current diagnosis for this admission?: Yes Plan: Tobacco Dependence patient received tobacco cessation counseling and offered nicotine replacement options (4) Pneumonia Qualifiers: Pneumonia type: due to unspecified organism Laterality: bilateral Lung lo cation: lower lobe of lung Qualified Code(s): J18.1 - Lobar pneumonia, unspecified organism Is this a current diagnosis for this admission?: Yes Plan: CT scan revealed consolidation/infiltrates bilateral lower lobes. The patient has a history of chemical and cold dust exposure. This may also be related to aspiration. It is likely gram-positive organism. - Time Time Spent with patient: 15-24 minutes Medications reviewed and adjusted accordingly: Yes Anticipated discharge: Home
--- NOTE | 2019-01-11 18:39 | PDOC PROGRESS REPORT ---
Subjective Progress Note for:: 01/09/19 Subjective:: CT revealed debris in the airways. Possible aspiration. Speech therapy ordered. Consider bronchoscopy. Reason For Visit: COPD EXACERBATION, BRONCHITIS HTN Physical Exam Vital Signs: Temp Pulse Resp BP Pulse Ox 97.9 F 118 H 20 152/93 H 91 L 01/09/19 15:35 01/09/19 19:00 01/09/19 16:22 01/09/19 15:35 01/09/19 16:22 Intake & Output 01/08/19 01/09/19 01/10/19 06:59 06:59 06:59 Intake Total 987 744 300 Balance 987 744 300 Weight 80.3 kg 79.4 kg General appearance: PRESENT: cooperative, mild distress, well-developed Head exam: PRESENT: normocephalic Respiratory exam: PRESENT: rhonchi, symmetrical. ABSENT: rales, stridor, wheezes Cardiovascular exam: PRESENT: RRR, +S1, +S2 GI/Abdominal exam: PRESENT: normal bowel sounds, soft. ABSENT: distended, tenderness Rectal exam: PRESENT: deferred Gentrourinary exam: ABSENT: indwelling catheter Extremities exam: ABSENT: pedal edema Neurological exam: PRESENT: alert, awake, oriented to person, oriented to place, oriented to time, oriented to situation, CN II-XII grossly intact. ABSENT: motor sensory deficit Psychiatric exam: PRESENT: appropriate affect, normal mood. ABSENT: agitated, anxious Focused psych exam: ABSENT: delusional, restlessness Results Laboratory Results: 01/09/19 07:02 01/09/19 07:02 01/09/19 01/09/19 07:02 07:02 WBC 12.2 H RBC 4.49 Hgb 13.8 Hct 41.1 MCV 92 MCH 30.7 MCHC 33.5 RDW 14.5 H Plt Count 217 Seg Neutrophils % 87.4 H Lymphocytes % 5.8 L Monocytes % 6.7 Eosinophils % 0.0 Basophils % 0.1 Absolute Neutrophils 10.7 H Absolute Lymphocytes 0.7 Absolute Monocytes 0.8 Absolute Eosinophils 0.0 Absolute Basophils 0.0 Sodium 140.6 Potassium 4.4 Chloride 104 Carbon Dioxide 25 Anion Gap 12 BUN 38 H Creatinine 1.03 Est GFR ( Amer) > 60 Est GFR (Non-Af Amer) > 60 Glucose 122 H Calcium 9.2 01/04/19 01/04/19 01/04/19 01:05 02:00 07:52 Creatine Kinase CK-MB (CK-2) Troponin I Cancelled < 0.012 NT-Pro-B Natriuret Pep 103 01/04/19 01/04/19 01/04/19 07:52 07:52 13:42 Creatine Kinase 119 142 CK-MB (CK-2) 1.63 Troponin I < 0.012 NT-Pro-B Natriuret Pep 01/04/19 01/04/19 01/04/19 13:42 19:12 19:12 Creatine Kinase 188 H CK-MB (CK-2) 1.46 1.38 Troponin I < 0.012 < 0.012 NT-Pro-B Natriuret Pep Impressions: Chest X-Ray 01/06/19 00:00 IMPRESSION: NO ACUTE RADIOGRAPHIC FINDING IN THE CHEST. Lung Scan-VQ NM 01/07/19 14:43 IMPRESSION: Low probability of pulmonary embolus. Chest CT 01/08/19 00:00 IMPRESSION: Debris in the bilateral lower lobe airways with patchy bibasilar air space disease atelectasis versus pneumonia. Recommend speech pathology evaluation for aspiration Heavily calcified LAD on images 35-40. Biapical obstructive lung disease. Assessment and Plan - Diagnosis (1) Acute hypoxemic respiratory failure Is this a current diagnosis for this admission?: Yes Plan: Continues to slowly improve. Lungs sound better today. We discussed the fact that he lost his oxygen concentrator on his trip from [place]. We will likely need to begin qualifying him for home oxygen. (2) COPD exacerbation Is this a current diagnosis for this admission?: Yes Plan: Doing well. Responding to current treatment regimen including nebulizers, steroids and antibiotics (3) Tobacco abuse Is this a current diagnosis for this admission?: Yes Plan: Continue to encourage tobacco cessation. The patient keeps stating that a pack of cigarettes last him 2 days. He fails to realize the 10 cigarettes a day is 10 cigarettes too much. (4) Pneumonia Qualifiers: Pneumonia type: due to unspecified organism Laterality: bilateral Lung location: lower lobe of lung Qualified Code(s): J18.1 - Lobar pneumonia, unspecified organism Is this a current diagnosis for this admission?: Yes Plan: The patient does not seem to be improving each day. We will continue the current antibiotic regimen. Unfortunately there was no sputum specimen obtained - Time Time Spent with patient: 15-24 minutes Smoking Cessation Education: 3 to 10 minutes Medications reviewed and adjusted accordingly: Yes Anticipated discharge: Home
--- NOTE | 2019-01-11 18:46 | PDOC PROGRESS REPORT ---
Subjective Progress Note for:: 01/10/19 Subjective:: Once again reports she is feeling slightly better than yesterday. He is concerned about his oxygen system that he lost during his travel Reason For Visit: COPD EXACERBATION, BRONCHITIS HTN Physical Exam Vital Signs: Temp Pulse Resp BP Pulse Ox 98.2 F 71 15 141/85 H 95 01/11/19 15:32 01/11/19 15:32 01/11/19 15:32 01/11/19 15:32 01/11/19 15:32 Intake & Output 01/10/19 01/11/19 01/12/19 06:59 06:59 06:59 Intake Total 300 2306 900 Output Total 6 Balance 300 2300 900 Weight 79.3 kg 80.1 kg General appearance: PRESENT: no acute distress, cooperative, well-developed Head exam: PRESENT: atraumatic, normocephalic Ear exam: PRESENT: normal external ear exam Mouth exam: PRESENT: moist, tongue midline Respiratory exam: PRESENT: rhonchi - Sporadic bilaterally but less than yesterday, symmetrical, unlabored, wheezes - Occasional expiratory wheeze bilaterally. ABSENT: accessory muscle use, rales Cardiovascular exam: PRESENT: RRR, +S1, +S2 GI/Abdominal exam: PRESENT: normal bowel sounds, soft. ABSENT: distended, tenderness Rectal exam: PRESENT: deferred Gentrourinary exam: ABSENT: indwelling catheter Extremities exam: ABSENT: joint swelling, pedal edema Neurological exam: PRESENT: alert, awake, oriented to person, oriented to place, oriented to time, oriented to situation, CN II-XII grossly intact. ABSENT: motor sensory deficit Psychiatric exam: PRESENT: flat affect. ABSENT: agitated, anxious Focused psych exam: ABSENT: delusional, restlessness Results Laboratory Results: 01/09/19 07:02 01/11/19 13:45 01/11/19 13:45 Sodium 140.3 Potassium 4.7 Chloride 106 Carbon Dioxide 23 Anion Gap 11 BUN 35 H Creatinine 1.03 Est GFR ( Amer) > 60 Est GFR (Non-Af Amer) > 60 Glucose 160 H Calcium 9.0 01/04/19 01/04/19 01/04/19 01:05 02:00 07:52 Creatine Kinase CK-MB (CK-2) Troponin I Cancelled < 0.012 NT-Pro-B Natriuret Pep 103 01/04/19 01/04/19 01/04/19 07:52 07:52 13:42 Creatine Kinase 119 142 CK-MB (CK-2) 1.63 Troponin I < 0.012 NT-Pro-B Natriuret Pep 01/04/19 01/04/19 01/04/19 13:42 19:12 19:12 Creatine Kinase 188 H CK-MB (CK-2) 1.46 1.38 Troponin I < 0.012 < 0.012 NT-Pro-B Natriuret Pep Impressions: Chest X-Ray 01/06/19 00:00 IMPRESSION: NO ACUTE RADIOGRAPHIC FINDING IN THE CHEST. Lung Scan-VQ NM 01/07/19 14:43 IMPRESSION: Low probability of pulmonary embolus. Chest CT 01/08/19 00:00 IMPRESSION: Debris in the bilateral lower lobe airways with patchy bibasilar air space disease atelectasis versus pneumonia. Recommend speech pathology evaluation for aspiration Heavily calcified LAD on images 35-40. Biapical obstructive lung disease. Assessment and Plan - Diagnosis (1) Acute hypoxemic respiratory failure Is this a current diagnosis for this admission?: Yes Plan: Continue current treatment regimen and attempt to wean oxygen. Walking oximetry was ordered. (2) COPD exacerbation Is this a current diagnosis for this admission?: Yes Plan: Steady improvement on the current regimen. We will start to taper steroids. (3) Tobacco abuse Is this a current diagnosis for this admission?: Yes Plan: Continue to educate patient regarding tobacco use and need for cessation (4) Pneumonia Qualifiers: Pneumonia type: due to unspecified organism Laterality: bilateral Lung location: lower lobe of lung Qualified Code(s): J18.1 - Lobar pneumonia, unspecified organism Is this a current diagnosis for this admission?: Yes Plan: Continue current antibiotic therapy. Speech therapy requested to assess patient for possible aspiration due to CT scan reporting debris in the airways. - Time Time Spent with patient: 15-24 minutes Smoking Cessation Education: 3 to 10 minutes Medications reviewed and adjusted accordingly: Yes Anticipated discharge: Home
--- NOTE | 2019-01-11 18:51 | PDOC PROGRESS REPORT ---
Subjective Progress Note for:: 01/11/19 Subjective:: Visitor with patient. Patient is quite upset today. Family financial issues are driving this. Reason For Visit: COPD EXACERBATION, BRONCHITIS HTN Physical Exam Vital Signs: Temp Pulse Resp BP Pulse Ox 98.2 F 71 15 141/85 H 95 01/11/19 15:32 01/11/19 15:32 01/11/19 15:32 01/11/19 15:32 01/11/19 15:32 Intake & Output 01/10/19 01/11/19 01/12/19 06:59 06:59 06:59 Intake Total 300 2306 1280 Output Total 6 Balance 300 2300 1280 Weight 79.3 kg 80.1 kg General appearance: PRESENT: mild distress, well-developed Head exam: PRESENT: atraumatic, normocephalic Ear exam: PRESENT: normal external ear exam Respiratory exam: PRESENT: rhonchi - Bilateral. Decreased from yesterday. No wheezes today., symmetrical. ABSENT: accessory muscle use, rales, wheezes Cardiovascular exam: PRESENT: RRR, +S1, +S2, tachycardia GI/Abdominal exam: PRESENT: normal bowel sounds, soft. ABSENT: distended, tenderness Rectal exam: PRESENT: deferred, black stool - Reported by patient Gentrourinary exam: ABSENT: indwelling catheter Extremities exam: ABSENT: pedal edema Neurological exam: PRESENT: alert, awake, oriented to person, oriented to place, oriented to time, oriented to situation, CN II-XII grossly intact. ABSENT: motor sensory deficit Psychiatric exam: PRESENT: agitated - Complaining to his cast about recent financial family issues, anxious Focused psych exam: ABSENT: delusional, restlessness Results Laboratory Results: 01/09/19 07:02 01/11/19 13:45 01/11/19 13:45 Sodium 140.3 Potassium 4.7 Chloride 106 Carbon Dioxide 23 Anion Gap 11 BUN 35 H Creatinine 1.03 Est GFR ( Amer) > 60 Est GFR (Non-Af Amer) > 60 Glucose 160 H Calcium 9.0 01/04/19 01/04/19 01/04/19 01:05 02:00 07:52 Creatine Kinase CK-MB (CK-2) Troponin I Cancelled < 0.012 NT-Pro-B Natriuret Pep 103 01/04/19 01/04/19 01/04/19 07:52 07:52 13:42 Creatine Kinase 119 142 CK-MB (CK-2) 1.63 Troponin I < 0.012 NT-Pro-B Natriuret Pep 01/04/19 01/04/19 01/04/19 13:42 19:12 19:12 Creatine Kinase 188 H CK-MB (CK-2) 1.46 1.38 Troponin I < 0.012 < 0.012 NT-Pro-B Natriuret Pep Impressions: Chest X-Ray 01/06/19 00:00 IMPRESSION: NO ACUTE RADIOGRAPHIC FINDING IN THE CHEST. Lung Scan-VQ NM 01/07/19 14:43 IMPRESSION: Low probability of pulmonary embolus. Chest CT 01/08/19 00:00 IMPRESSION: Debris in the bilateral lower lobe airways with patchy bibasilar air space disease atelectasis versus pneumonia. Recommend speech pathology evaluation for aspiration Heavily calcified LAD on images 35-40. Biapical obstructive lung disease. Assessment and Plan - Diagnosis (1) Acute hypoxemic respiratory failure Is this a current diagnosis for this admission?: Yes Plan: Walking oximetry revealed that the patient stayed above 90% for the most part on room air even after walking for 10 minutes. I have asked the staff to remove his oxygen completely and monitor. (2) COPD exacerbation Is this a current diagnosis for this admission?: Yes Plan: I am decreasing his scheduled nebulizers. I am introducing a combination inhaler (Brio Ellipta) and I am starting to decrease his steroid therapy. Wean off of oxygen as above. (3) Tobacco abuse Is this a current diagnosis for this admission?: Yes Plan: Continue to educate patient regarding tobacco use and need for cessation. Even the visitor today was supportive of my efforts to get the patient to understand that he needs to stop smoking completely. (4) Pneumonia Qualifiers: Pneumonia type: due to unspecified organism Laterality: bilateral Lung location: lower lobe of lung Qualified Code(s): J18.1 - Lobar pneumonia, unspecified organism Is this a current diagnosis for this admission?: Yes Plan: Continue current antibiotics. Patient is responding nicely. - Time Time Spent with patient: 15-24 minutes Smoking Cessation Education: 3 to 10 minutes Medications reviewed and adjusted accordingly: Yes Anticipated discharge: Home
[2019-01-11] MEDS: GUAIFENESIN SYRP 200 MG/10 ML UDC PO PRN (20:38)
[2019-01-11] MEDS: MONTELUKAST SODIUM 10 MG TABLET PO SCH (21:35)
[2019-01-12] MEDS: IPRATROPIUM/ALBUTEROL 0.5-2.5 MG/3 ML AMPUL NEB SCH ×4 (03:59→15:49)
[2019-01-12] MEDS: HEPARIN SOD (PORCINE) 5,000 UNIT/ML 1 ML SYRINGE SUBCUT SCH ×3 (05:17→21:28)
[2019-01-12] MEDS: PANTOPRAZOLE SODIUM 40 MG TABLET.DR PO SCH (05:21)
[2019-01-12] MEDS: METHYLPREDNISOLONE INJ 40 MG/1 ML SDV IV SCH ×3 (05:22→21:31)
[2019-01-12] MEDS: FLUTICASONE NASAL SPRAY 50 MCG/SPRY 120 SPRAY/16 GM NASL SCH ×2 (05:22→17:26)
[2019-01-12 06:33] LABS: HEMATOCRIT 41.6 % (37.9-51.0); HEMOGLOBIN 13.7 g/dL (13.5-17.0); MEAN CORPUSCULAR HEMOGLOBIN 30.3 pg (27.0-33.4); MEAN CORPUSCULAR HGB CONC 32.9 g/dL (32.0-36.0); MEAN CORPUSCULAR VOLUME 92 fl (80-97); PLATELET COUNT 192 10^3/uL (150-450); RED BLOOD COUNT 4.51 10^6/uL (4.35-5.55); RED CELL DISTRIBUTION WIDTH 14.9 % (11.5-14.0); WHITE BLOOD COUNT 11.5 10^3/uL (4.0-10.5)
[2019-01-12 06:47] LABS: ANION GAP 10 (5-19); BLOOD UREA NITROGEN 31 mg/dL (7-20); CALCIUM 8.8 mg/dL (8.4-10.2); CARBON DIOXIDE 24 mmol/L (22-30); CHLORIDE 106 mmol/L (98-107); GLUCOSE 117 mg/dL (75-110); POTASSIUM 4.7 mmol/L (3.6-5.0); SODIUM 140.1 mmol/L (137-145)
[2019-01-12 07:22] LABS: ABSOLUTE LYMPHOCYTES# (MANUAL) 0.5 10^3/uL (0.5-4.7); ABSOLUTE MONOCYTES # (MANUAL) 0.9 10^3/uL (0.1-1.4); ABSOLUTE NEUTROPHILS# (MANUAL) 10.1 10^3/uL (1.7-8.2); BASOPHILS % (MANUAL) 0 % (0-2); EOSINOPHILS % (MANUAL) 0 % (0-6); LYMPHOCYTES % (MANUAL) 3 % (13-45); MONOCYTES % (MANUAL) 8 % (3-13); SEGMENTED NEUTROPHILS % (MAN) 88 % (42-78); TOTAL CELLS COUNTED 100; TOXIC GRANULATION 1+; TOXIC VACUOLATION PRESENT
[2019-01-12 07:23] LABS: BURR CELLS SLIGHT; PLATELET COMMENT ADEQUATE; POIKILOCYTOSIS SLIGHT
[2019-01-12] MEDS: BUDESONIDE NEB 0.5 MG/2 ML AMPUL NEB SCH (08:20)
[2019-01-12] MEDS: METOPROLOL SUCCINATE 25 MG TAB.SR.24H PO SCH (09:30)
[2019-01-12] MEDS: FLUTICASONE/VILANTEROL 200-25 MCG/DOSE IH SCH (09:31)
[2019-01-12] MEDS: CEFTRIAXONE SODIUM 1,000 MG in DEXTROSE 5%-WATER 50 ML IV SCH (09:31)
[2019-01-12] MEDS: TIOTROPIUM BROMIDE DPI 5 CAP/KIT (18 MCG/CAP) IH SCH (09:33)
[2019-01-12] MEDS: ALBUTEROL SULFATE 0.083% NEB 2.5 MG/3 ML AMPUL NEB ONE ×2 (10:22→11:29)
[2019-01-12] MEDS ORDERED: ROFLUMILAST 500 MCG TABLET PO SCH (12:30)
[2019-01-12] MEDS ORDERED: THEOPHYLLINE ANHYDROUS 100 MG TAB.SR.12H PO SCH (12:30)
[2019-01-12] MEDS: THEOPHYLLINE ANHYDROUS 100 MG TAB.SR.12H PO SCH (13:57)
[2019-01-12] MEDS: ROFLUMILAST 500 MCG TABLET PO SCH (13:57)
[2019-01-12] MEDS: MONTELUKAST SODIUM 10 MG TABLET PO SCH (21:31)
[2019-01-12] MEDS ORDERED: BISACODYL 5 MG TABEC PO PRN (22:54)
--- NOTE | 2019-01-12 22:54 | PDOC PROGRESS REPORT ---
Subjective Progress Note for:: 01/12/19 Subjective:: The patient is back on nasal cannula this morning despite doing well with ambulation on room air yesterday. He is still somewhat frustrated as he is still in hospital. I explained that we are mainly waiting for approval of oxygen however with his ambulatory study he is not going to qualify. He was seen by pulmonology today. Some changes in his medication regimen were ordered. Reason For Visit: COPD EXACERBATION, BRONCHITIS HTN Physical Exam Vital Signs: Temp Pulse Resp BP Pulse Ox 97.6 F 67 16 145/85 H 99 01/12/19 12:46 01/12/19 15:49 01/12/19 15:49 01/12/19 12:46 01/12/19 15:49 Intake & Output 01/11/19 01/12/19 01/13/19 06:59 06:59 06:59 Intake Total 2306 1280 468 Output Total 6 Balance 2300 1280 468 Weight 80.1 kg 77.3 kg General appearance: PRESENT: no acute distress, cooperative, well-developed Head exam: PRESENT: atraumatic, normocephalic Ear exam: PRESENT: normal external ear exam Mouth exam: PRESENT: moist, tongue midline Respiratory exam: PRESENT: clear to auscultation benito - The patient recently completed a nebulizer treatment, symmetrical, unlabored. ABSENT: rales, rhonchi , tachypnea, wheezes Cardiovascular exam: PRESENT: RRR, +S1, +S2, systolic murmur - 1/6 to 2/6 murmur detected. Difficult to hear intermittently based on breath sounds. GI/Abdominal exam: PRESENT: normal bowel sounds, soft. ABSENT: distended, guard ing, tenderness Rectal exam: PRESENT: deferred Gentrourinary exam: ABSENT: indwelling catheter Extremities exam: ABSENT: pedal edema Musculoskeletal exam: PRESENT: ambulatory, normal inspection Neurological exam: PRESENT: alert, awake, oriented to person, oriented to place, oriented to time, oriented to situation, CN II-XII grossly intact. ABSENT: motor sensory deficit Psychiatric exam: PRESENT: anxious, flat affect. ABSENT: agitated Focused psych exam: PRESENT: restlessness - Continues to remind me that he wants to get discharged.. ABSENT: delusional Results Laboratory Results: 01/12/19 05:59 01/12/19 05:59 01/12/19 01/12/19 05:59 05:59 WBC 11.5 H RBC 4.51 Hgb 13.7 Hct 41.6 MCV 92 MCH 30.3 MCHC 32.9 RDW 14.9 H Plt Count 192 Seg Neutrophils % Not Reportable Lymphocytes % Not Reportable Monocytes % Not Reportable Eosinophils % Not Reportable Basophils % Not Reportable Absolute Neutrophils Not Reportable Absolute Lymphocytes Not Reportable Absolute Monocytes Not Reportable Absolute Eosinophils Not Reportable Absolute Basophils Not Reportable Sodium 140.1 Potassium 4.7 Chloride 106 Carbon Dioxide 24 Anion Gap 10 BUN 31 H Creatinine 1.00 Est GFR ( Amer) > 60 Est GFR (Non-Af Amer) > 60 Glucose 117 H Calcium 8.8 01/04/19 01/04/19 01/04/19 01:05 02:00 07:52 Creatine Kinase CK-MB (CK-2) Troponin I Cancelled < 0.012 NT-Pro-B Natriuret Pep 103 01/04/19 01/04/19 01/04/19 07:52 07:52 13:42 Creatine Kinase 119 142 CK-MB (CK-2) 1.63 Troponin I < 0.012 NT-Pro-B Natriuret Pep 01/04/19 01/04/19 01/04/19 13:42 19:12 19:12 Creatine Kinase 188 H CK-MB (CK-2) 1.46 1.38 Troponin I < 0.012 < 0.012 NT-Pro-B Natriuret Pep Impressions: Chest X-Ray 01/06/19 00:00 IMPRESSION: NO ACUTE RADIOGRAPHIC FINDING IN THE CHEST. Lung Scan-VQ NM 01/07/19 14:43 IMPRESSION: Low probability of pulmonary embolus. Chest CT 01/08/19 00:00 IMPRESSION: Debris in the bilateral lower lobe airways with patchy bibasilar air space disease atelectasis versus pneumonia. Recommend speech pathology evaluation for aspiration Heavily calcified LAD on images 35-40. Biapical obstructive lung disease. Assessment and Plan - Diagnosis (1) Acute hypoxemic respiratory failure Is this a current diagnosis for this admission?: Yes Plan: Reviewing the patient's ambulatory oximetry study on room air he was mostly above 90% even walking 1000 feet. It seems that in the morning he is slightly worse. It is difficult to know if this is to do atelectasis developing while sleeping. He does have an incentive spirometer and flutter valve and I encourage him to use them. Please also see pulmonology note who saw the patient in consultation. (2) COPD exacerbation Is this a current diagnosis for this admission?: Yes Plan: Appreciate pulmonology's input. Daliresp has been added as well as Spiriva. Patient will also be on low-dose theophylline. I have introduced Brio Ellipta in an effort to wean him from his DuoNeb's. (3) Tobacco abuse Is this a current diagnosis for this admission?: Yes Plan: The patient has poor insight as he thinks 10 cigarettes a day or nothing. I tried to explain again that 10 cigarettes a day is quite a bit of exposure. He tends to focus on environmental exposure from his work in the past. We will still strongly encourage tobacco cessation. (4) Pneumonia Qualifiers: Pneumonia type: due to unspecified organism Laterality: bilateral Lung location: lower lobe of lung Qualified Code(s): J18.1 - Lobar pneumonia, unspecified organism Is this a current diagnosis for this admission?: Yes (5) Constipation Qualifiers: Constipation type: unspecified constipation type Qualified Code(s): K59.00 - Constipation, unspecified Is this a current diagnosis for this admission?: Yes Plan: The patient states that he passed black stool. There is no indication of any bowel movement on the intake and output chart. I have ordered a sample for occult blood testing. Nursing reports that they have not noted a bowel movement but will remind the patient about the need to collect a specimen. - Time Time Spent with patient: 15-24 minutes Smoking Cessation Education: 3 to 10 minutes Medications reviewed and adjusted accordingly: Yes
--- NOTE | 2019-01-12 23:54 | CONSULTATION REPORT E ---
Consultation Report NAME: MARIA FERNANDA LY : 1950 AGE: 68Y DATE: 01/12/2019 ROOM: 435 A TO: ELIZABETH CLINE M.D. FROM: JOANIE WEN M.D. Requesting Physician HISTORY OF PRESENT ILLNESS: The patient is a 68-year-old male who came in with increased shortness of breath on 01/04/2019, treated for COPD exacerbation, consulted for further evaluation and management of COPD and pneumonia. The patient feels currently slightly better. Denies any increasing cough or purulent sputum production or hemoptysis. No chest pain. Still coughing some secretions according to the patient. No vomiting, no nausea, no diarrhea. Currently on ceftriaxone, DuoNeb nebulizer, Spiriva, Solu-Medrol 40 mg q.8, Singulair, and Protonix. PAST MEDICAL HISTORY: 1. Hypertension. 2. COPD. 3. Tobacco dependency. SOCIAL HISTORY: The patient lives along. Smokes about a 1/2 pack a day. Denies any alcohol abuse or illicit drug use. RESUSCITATION STATUS: Full code. FAMILY HISTORY: HOME MEDICATIONS: 1. Azithromycin. 2. Oxycodone. 3. Prednisone. 4. Tylenol. 5. Maalox. 6. DuoNeb nebulizer every 8 hours. 7. Xanax. 8. Rocephin. 9. Fluticasone. 10. Flonase. 11. BREO. 12. Hydralazine. 13. Solu-Medrol 40 mg q.8 IV. 14. Toprol 25 mg daily. 15. Singulair 10 mg at bedtime. 16. Protonix 40 mg p.o. every morning. 17. Daliresp. 18. Protonix. 19. Spiriva inhaler 1 capsule daily. REVIEW OF SYSTEMS: CONSTITUTIONAL: Has no fever for the last few days, no chills. EYES: Denies any blurry vision or jaundice. EARS, NOSE, AND THROAT: Denies any hearing changes. RESPIRATORY: Complained about increased shortness of breath. Denies cough or hemoptysis. Chest tightness on and off. CARDIAC: Denies any chest pain or palpitations. GASTROINTESTINAL: No nausea, vomiting, or diarrhea. GENITOURINARY: No dysuria or hematuria. EXTREMITIES: No joint swelling. NEUROLOGIC: No abnormal speech. No confusion. No dizziness or syncopal episodes. PSYCHIATRIC: No anxiety, depression. ENDOCRINE: Denies any cold intolerance or heat intolerance. Denies polydipsia or polyuria. PHYSICAL EXAMINATION: GENERAL: The patient is awake, alert, coherent, oriented x3. VITAL SIGNS: Temperature of 98.3 with a T-max of 98.4, pulse rate of 89, blood pressure is 151/95, respiratory rate of 16, saturation is 97% on room air. EYES: No jaundice or pallor. EARS, NOSE, AND THROAT: No ear drainage. No nasal discharge. CHEST AND LUNGS: Rhonchi bilaterally. No coarse crackles. CARDIOVASCULAR: S1, S2 distinct. Normal rate and regular rhythm. ABDOMEN: Flabby, positive bowel sounds, soft, nondistended. EXTREMITIES: No joint swelling, no cellulitis. No clubbing noted. LABORATORY DATA: CBC done today showed white count 11.5, hemoglobin 13.7, hematocrit is 41.6, and platelet count of 192. Chemistry done today showed sodium is 140, potassium 4.7, chloride 106, CO2 is 34, BUN is 31, creatinine is 1, and glucose is 117, calcium is 8.8. ASSESSMENT: 1. COPD in acute exacerbation. Seems to be improving. 2. Pneumonia bibasal. 3. Heavy smoking history. PLAN/RECOMMENDATION: 1. Continue BREO 200 mcg 1 puff once daily. 2. We will continue the Spiriva inhaler 1 capsule daily. 3. We will start the patient on Daliresp 500 mcg daily with meals. 4. Also start the on a low dose of theophylline 100 mg p.o. daily. 5. Continue Solu-Medrol 40 mg IV q.8 hours. 6. We will send a sputum culture today if the patient is coughing yellow-green phlegm. 7. Continue the Rocephin 1 gram daily. 8. We will follow. DICTATING PHYSICIAN: ELIZABETH CLINE MD,KEM,MPH [id number] PHY#: [id number] [id number] JOB#: [id number] ACCT: [id number] cc:ELIZABETH CLINE M.D. > [facility]
[2019-01-13] MEDS: IPRATROPIUM/ALBUTEROL 0.5-2.5 MG/3 ML AMPUL NEB SCH ×2 (00:02→08:45)
[2019-01-13] MEDS: GUAIFENESIN SYRP 200 MG/10 ML UDC PO PRN (01:51)
[2019-01-13] MEDS: HEPARIN SOD (PORCINE) 5,000 UNIT/ML 1 ML SYRINGE SUBCUT SCH (05:21)
[2019-01-13] MEDS: FLUTICASONE NASAL SPRAY 50 MCG/SPRY 120 SPRAY/16 GM NASL SCH (05:43)
[2019-01-13] MEDS: METHYLPREDNISOLONE INJ 40 MG/1 ML SDV IV SCH (05:43)
[2019-01-13] MEDS: PANTOPRAZOLE SODIUM 40 MG TABLET.DR PO SCH (05:43)
[2019-01-13 08:16] VITALS: BP 153/77
[2019-01-13] MEDS: CEFTRIAXONE SODIUM 1,000 MG in DEXTROSE 5%-WATER 50 ML IV SCH (09:45)
[2019-01-13] MEDS: ROFLUMILAST 500 MCG TABLET PO SCH (09:46)
[2019-01-13] MEDS: FLUTICASONE/VILANTEROL 200-25 MCG/DOSE IH SCH (09:46)
[2019-01-13] MEDS: THEOPHYLLINE ANHYDROUS 100 MG TAB.SR.12H PO SCH (09:46)
[2019-01-13] MEDS: TIOTROPIUM BROMIDE DPI 5 CAP/KIT (18 MCG/CAP) IH SCH (09:46)
[2019-01-13] MEDS: METOPROLOL SUCCINATE 25 MG TAB.SR.24H PO SCH (09:46)
[2019-01-13] MEDS ORDERED: POLYETHYLENE GLYCOL 3350 POWDER 17 GM/1 PACKET PO SCH (10:00)
--- NOTE | 2019-01-13 20:08 | PDOC DISCHARGE SUMMARY ---
General - Admit/Disc Date/PCP Admission Date/Primary Care Provider: 01/04/19 03:11 Discharge Date: 01/13/19 - Discharge Diagnosis (1) Acute hypoxemic respiratory failure Is this a current diagnosis for this admission?: Yes Summary: The patient has done well on room air. He is marginal but hopefully his COPD will improve. Unfortunately he is very concerned about his personal belongings and his place to live. He is quite insistent on leaving the hospital as he "feels good "and could lose his personal possessions if he is not at home. I did agree to discharge as long as he continues to comply with his medication regimen and follows up with pulmonology. (2) COPD exacerbation Is this a current diagnosis for this admission?: Yes Summary: Please see discharge medication list. Pulmonology has added Daliresp, Spiriva and theophylline. He will follow-up with pulmonology as an outpatient. (3) Tobacco abuse Is this a current diagnosis for this admission?: Yes Summary: The patient did not seem to grasp the fact that 10 cigarettes a day is still extremely detrimental. Continue to encourage tobacco cessation. (4) Pneumonia Is this a current diagnosis for this admission?: Yes Summary: Adequate antibiotic therapy completed during his hospitalization. (5) Constipation Is this a current diagnosis for this admission?: Yes Summary: Continue stool softeners. Return to his baseline diet will help as well. - Additional Information Resuscitation Status: Full Code Discharge Diet: As Tolerated Discharge Activity: Activity As Tolerated, Balance Activity w/Rest Prescriptions: Albuterol Sulfate [Proair HFA Inhalation Aerosol 8.5 gm MDI] 2 puff IH QIDP PRN #1 hfa.aer.ad PRN Reason: Shortness Of Breath Fluticasone Propionate [Flonase Nasal Woodburn 50 Mcg/Woodburn 16 gm] 2 spray NASL Q12A #1 spray.pump Fluticasone/Vilanterol [Breo 200-25 Mcg Ellipta 14 Dose/Dpi] 1 inh IH DAILY #1 inhaler Ipratropium/Albuterol Sulfate [Duoneb 3 ml Ampul] 3 ml NEB RTQ4HP PRN #25 vial.neb PRN Reason: Shortness Of Breath Metoprolol Succinate [Toprol Xl 25 mg Tab.sr] 25 mg PO DAILY #30 tab.sr.24h Montelukast Sodium [Singulair 10 mg Tablet] 10 mg PO QHS #30 tablet Pantoprazole Sodium [Protonix [address] Tablet] 40 mg PO Q6AM #30 tablet.dr Prednisone [Deltasone 10 mg Tablet] 10 mg PO ASDIR #30 tablet Roflumilast [Daliresp 500 Mcg Tablet] 500 mcg PO DAILY #30 tablet Theophylline Anhydrous [Gordy-Dur 100 mg Tab.sr] 100 mg PO DAILY #30 tab.sr.12h Tiotropium Morse [Spiriva Handihaler 5 Cap/Kit (18 Mcg/Cap)] 1 cap IH DAILY #1 kit Home Medications: Acetaminophen [Tylenol 325 mg Tablet] 650 mg PO Q4HP PRN tablet 01/13/19 Albuterol Sulfate [Proair HFA Inhalation Aerosol 8.5 gm MDI] 2 puff IH QIDP PRN #1 hfa.aer.ad 01/13/19 Fluticasone Propionate [Flonase Nasal [place] 50 Mcg/Woodburn 16 gm] 2 spray NASL Q12A #1 spray.pump 01/13/19 Fluticasone/Vilanterol [Breo 200-25 Mcg Ellipta 14 Dose/Dpi] 1 inh IH DAILY #1 inhaler 01/13/19 Guaifenesin [Robitussin Syrup 200 mg/10 ml Ud Cup] 200 mg PO Q4HP PRN udc 01/13/19 Ipratropium/Albuterol Sulfate [Duoneb 3 ml Ampul] 3 ml NEB RTQ4HP PRN #25 vial.neb 01/13/19 Metoprolol Succinate [Toprol Xl 25 mg Tab.sr] 25 mg PO DAILY #30 tab.sr.24h 01/13/19 Montelukast Sodium [Singulair 10 mg Tablet] 10 mg PO QHS #30 tablet 01/13/19 Pantoprazole Sodium [Protonix [address] Tablet] 40 mg PO Q6AM #30 tablet.dr 01/13/19 Polyethylene Glycol 3350 [Miralax Powder 17 gm/Packet] 17 gm PO DAILY powd.pack 01/13/19 Prednisone [Deltasone 10 mg Tablet] 10 mg PO ASDIR #30 tablet 01/13/19 Roflumilast [Daliresp 500 Mcg Tablet] 500 mcg PO DAILY #30 tablet 01/13/19 Theophylline Anhydrous [Gordy-Dur 100 mg Tab.sr] 100 mg PO DAILY #30 tab.sr.12h 01/13/19 Tiotropium Morse [Spiriva Handihaler 5 Cap/Kit (18 Mcg/Cap)] 1 cap IH DAILY #1 kit 01/13/19 History of Present Illness Patient complains of: Shortness of breath History of Present Illness: MARIA FERNANDA LY is a 68 year old male with a history of chronic obstructive pulmonary disease. On a bus trip from [place] back to [place] he lost his medications and oxygen delivery system. He was without medications for some time. He had been experiencing increasing shortness of breath with cough. He finally decided to present to the emergency department. He was found to be hypoxic and requiring oxygen supplementation. Imaging suggested infiltrates consistent with pneumonia. He was referred to the hospital service for admission. Hospital Course Hospital Course: The patient had a slow recovery. It took a while to get off of oxygen therapy. He in fact is marginal but insists on going home. He was seen by pulmonology and they added several medications. He will follow-up with pulmonology as an outpatient. Physical Exam Vital Signs: Temp Pulse Resp BP Pulse Ox 97.4 F 101 H 18 153/77 H 95 01/13/19 10:03 01/13/19 10:03 01/13/19 10:03 01/13/19 10:03 01/13/19 10:03 Intake & Output 01/12/19 01/13/19 01/14/19 06:59 06:59 06:59 Intake Total 1280 648 Balance 1280 648 Weight 77.3 kg 77.5 kg General appearance: PRESENT: no acute distress, cooperative, well-developed Head exam: PRESENT: atraumatic, normocephalic Ear exam: PRESENT: normal external ear exam Mouth exam: PRESENT: moist, tongue midline Respiratory exam: PRESENT: rhonchi - Still with rhonchi but significantly less, symmetrical, unlabored. ABSENT: accessory muscle use, rales, tachypnea, wheezes Cardiovascular exam: PRESENT: RRR, +S1, +S2 GI/Abdominal exam: PRESENT: normal bowel sounds, soft. ABSENT: distended, tenderness Rectal exam: PRESENT: deferred Extremities exam: ABSENT: pedal edema Neurological exam: PRESENT: alert, awake, oriented to person, oriented to place, oriented to time, oriented to situation, CN II-XII grossly intact. ABSENT: motor sensory deficit Psychiatric exam: PRESENT: appropriate affect, normal mood. ABSENT: agitated, anxious Focused psych exam: ABSENT: delusional, restlessness Results Laboratory Results: 01/12/19 05:59 01/12/19 05:59 01/04/19 01/04/19 01/04/19 01:05 02:00 07:52 Creatine Kinase CK-MB (CK-2) Troponin I Cancelled < 0.012 NT-Pro-B Natriuret Pep 103 01/04/19 01/04/19 01/04/19 07:52 07:52 13:42 Creatine Kinase 119 142 CK-MB (CK-2) 1.63 Troponin I < 0.012 NT-Pro-B Natriuret Pep 01/04/19 01/04/19 01/04/19 13:42 19:12 19:12 Creatine Kinase 188 H CK-MB (CK-2) 1.46 1.38 Troponin I < 0.012 < 0.012 NT-Pro-B Natriuret Pep Impressions: Chest X-Ray 01/06/19 00:00 IMPRESSION: NO ACUTE RADIOGRAPHIC FINDING IN THE CHEST. Lung Scan-VQ NM 01/07/19 14:43 IMPRESSION: Low probability of pulmonary embolus. Chest CT 01/08/19 00:00 IMPRESSION: Debris in the bilateral lower lobe airways with patchy bibasilar air space disease atelectasis versus pneumonia. Recommend speech pathology evaluation for aspiration Heavily calcified LAD on images 35-40. Biapical obstructive lung disease. Qualifiers - * PATIENT BEING DISCHARGED WITH ANY OF THE FOLLOWING DIAGNOSIS: No Acute Heart Failure Is this a Heart Failure Patient?: No Plan Discharge Plan: The patient explained his situation with housing and belongings. It is in his best interest to get home and establish his living situation and ensure that his personal belongings are still intact. Because of this I will discharge him to home so that he can have prescriptions. He will see Dr. Blair on follow-up and [facility] Prescriptions were electronically sent to [facility] [address] [facility] Time Spent: Greater than 30 Minutes
--- NOTE | 2019-01-14 12:00 | PULMONARY FUNCTION TEST ---
PULMONARY FUNCTION TEST PATIENT NAME: MARIA FERNANDA LY MR#: [id number] [facility] #: [id number] ROOM#: 435 DATE OF STUDY: 01/12/2019 Procedure: Bedside Spirometry Pre-Post bronchodilator REPORT Spirometry showed an obstructive airway defect with and FEV-1/FVC ratio was 69%. FEV-1 of 56% predicted post bronchodilator, suggestive of moderate COPD-Chronic bronchitis. There was a significant bronchodilator response of 13% and 200 ml of the FEV-1 and 14% change and 320 ml change of the FVC. IMPRESSION COPD- Chronic bronchitis. Concomitant asthma possible. Recommend pulmonary clinic follow up in 2-3 weeks ff hospital discharge. INTERPRETING PHYSICIAN: ELIZABETH CLINE MD,KEM,MPH /: [id number] TT: 1125 ID: [id number] /: [id number] TD: [id number] JOB: [id number] cc:Sosa HESTER M.D. > [facility]
== END 2019-01-13 10:47 | disposition home or self-care (01) | DRG 193 ==
LOC: ER 00:56 → EH 03:11 → 4S 14:34
PROVIDERS: ADMIT Internal Medicine; ATTEND Internal Medicine
DX: J18.1 Lobar pneumonia, unspecified organism (principal); J96.21 Acute and chronic respiratory failure with hypoxia; J44.1 Chronic obstructive pulmonary disease with (acute) exacerbation; I10 Essential (primary) hypertension; K59.00 Constipation, unspecified; F17.210 Nicotine dependence, cigarettes, uncomplicated; Z60.2 Problems related to living alone; Z91.14 Patient's other noncompliance with medication regimen; Z79.52 Long term (current) use of systemic steroids
CPT/HCPCS: 36415; 71045; 71260; 78582; 80048; 80053; 80307; 82550; 82553; 82803; 83605; 83880; 84484; 85025; 93005; 93010; 94640; 94660; 94667; 94668; 94799; 96365; 99291; A9540; A9567; J0360; J0456; J0696; J1644; J1940; J2920; J3475; J3490; J7060; J7120; J7512; J7620; Q9969